=== PATIENT | male | born 2000 | race Caucasian/White ===

== ENCOUNTER 2019-04-20 15:03 | Emergency (ER) | payer MEDICAID, OTHER ==
[~2019-04-20] VITALS: Ht 175.3 cm; Wt 70.0 kg
[2019-04-20] MEDS ORDERED: CODE120S2 PO (16:30)
[2019-04-20] MEDS ORDERED: IBUP-1984 PO (16:30)
[2019-04-20] MEDS ORDERED: benzonatate 100mg capsule PO ONE (16:50)
[2019-04-20] MEDS ORDERED: ibuprofen tablet 400 MG TABLET PO ONE (16:50)
[2019-04-20 17:05] VITALS: BP 110/64
== END 2019-04-20 17:05 | disposition home or self-care (01) ==
LOC: ER 15:04
DX: J06.9 Acute upper respiratory infection, unspecified (principal); B34.9 Viral infection, unspecified; Z79.899 Other long term (current) drug therapy
CPT/HCPCS: 99283